=== PATIENT | female | born 1970 | race Caucasian/White ===

== ENCOUNTER → 2017-01-17 | Outpatient (CLI) | payer OTHER | END | disposition home or self-care (01) | LOC: CFH 09:05 | PROVIDERS: ATTEND Genetic Counselor, MS | DX: Z12.31 Encounter for screening mammogram for malignant neoplasm of breast (principal) | CPT/HCPCS: 77063; G0202 ==

== ENCOUNTER → 2017-02-20 | Outpatient (CLI) | payer OTHER | END | disposition home or self-care (01) | LOC: CFH 12:53 | PROVIDERS: ATTEND Genetic Counselor, MS | DX: E07.9 Disorder of thyroid, unspecified (principal) | CPT/HCPCS: 76536 ==

== ENCOUNTER 2018-01-07 19:20 | Emergency (ER) | payer OTHER ==
[~2018-01-07] VITALS: Ht 172.7 cm; Wt 67.7 kg
[2018-01-07 19:23] VITALS: BP 110/67
[2018-01-07] MEDS ORDERED: PROPARACAINE OPHTH 0.5%, 15ML ONE (19:51)
[2018-01-07] MEDS ORDERED: PROPARACAINE OPHTH 0.5%, 15ML EACHEYE ONE (20:00)
[2018-01-07] MEDS ORDERED: PLEASE ENTER ALLERGIES MC SCH (20:00)
== END 2018-01-07 20:12 | disposition home or self-care (01) ==
LOC: ED 19:50
DX: S05.02XA Injury of conjunctiva and corneal abrasion without foreign body, left eye, initial encounter (principal); X58.XXXA Exposure to other specified factors, initial encounter; Y93.H2 Activity, gardening and landscaping; Y92.89 Other specified places as the place of occurrence of the external cause; Y99.8 Other external cause status
CPT/HCPCS: 99283